=== PATIENT | male | born 1955 | race Caucasian/White ===

== ENCOUNTER 2020-08-01 08:15 | Emergency (ER) | payer BC, MEDICARE, SELFPAY ==
[2020-08-01 08:28] VITALS: BP 142/66; PULSE 70; RESP 20; TEMP 36.9; O2SAT 98
--- NOTE | 2020-08-01 08:43 | ED.URI ---
HPI - URI/Sore Throat General Chief Complaint: Upper Respiratory Infection Stated Complaint: Throat complaint Time Seen by Provider: 08/01/20 08:17 Source: patient Mode of arrival: ambulatory Limitations: no limitations History of Present Illness HPI Narrative: 65-year-old male presents to [facility] with complaints of sore throat and fatigue for the past 3 days. Patient reports has been taking [id number] Tylenol with minimal relief. Patient did have a tonsillectomy as a child. Patient reports that he had his Covid vaccine in May. Patient denies fever, bodies, chills, nausea, vomiting, diarrhea, cough, shortness of breath or wheezing. Patient denies sick contacts. Patient denies recent travel. MD elicited complaint: sore throat Onset (ago): day(s) (3) Consistency: constant Able to tolerate fluids by mouth: Yes Treatments prior to arrival: acetaminophen Related Data Home Medications Medication Instructions Recorded Confirmed albuterol sulfate INHALATION 08/01/20 fluticasone propionate [Flovent INHALATION 08/01/20 HFA] levothyroxine 08/01/20 pregabalin 08/01/20 rabeprazole mg PO 08/01/20 terbinafine HCl mg 08/01/20 Allergies Allergy/AdvReac Type Severity Reaction Status Date / Time Penicillins AdvReac Unknown Diarrhea Verified 08/01/20 08:41 Review of Systems Constitutional: Constitutional: Denies chills, Reports fatigue, Denies fever(s) and Denies weakness ENT: Denies dysphagia, Denies vertigo, Denies dizziness, Denies epistaxis, Denies nasal congestion and Reports sore throat Cardiovascular: Cardiovascular: Denies chest pain, Denies rapid heart rate, Denies radiating jaw, neck or arm pain and Denies slow heart rate Respiratory: Respiratory: Denies cough and Denies dyspnea Gastrointestinal: Gastrointestinal: Denies abdominal pain, Denies constipation, Denies diarrhea, Denies nausea and Denies vomiting PMF Past Medical History Medical History (Updated 08/01/20 @ 08:51 by Cindy Gibbons APRN) Appendicitis Hernia Tonsillectomy planned Surgical History Surgical History (Updated 08/01/20 @ 08:45 by Cindy Gibbons APRN) Knee joint replacement status Family History Family History Father Family history of malignant neoplasm Sibling Family history of diabetes mellitus in first degree relative Family history of heart disease in male family member before age 55 Mother Family history of heart disease in male family member before age 55 Social History Social History (Updated 08/01/20 @ 08:45 by Cindy Gibbons APRN) Smoking status: Never smoker Comments At time of signature, I agree with nursing past medical, surgical, social and family history. There is no relevant family history pertinent to the presenting complaint. Exam Const: General: healthy appearing, no acute distress and alert Orientation/consciousness: patient oriented x3 HENMT: Ears: external ears normal General nose exam: Normal external nose present Face and sinus: normal facial exam and sinuses nontender Mouth: Yes lip normal and Yes moist mucous membranes Teeth and gingiva: dentition normal Throat: uvula midline Other: Tonsils absent, moderate erythema noted to posterior pharynx and uvula. There is no swelling noted to uvula. Airway is patent. Neck: Neck: normal visual inspection Resp: Effort & Inspection: normal respiratory effort, not labored and not tachypneic Auscultation: clear to auscultation bilaterally Cardio: Rate: regular rate, not bradycardic and not tachycardic Rhythm: regular rhythm Skin: General skin exam: normal color Rashes: no rashes Neuro: General: patient oriented x3, moves all extremities and no meningeal signs Psych: Appearance: grossly normal Mental Status: mental status grossly normal Affect: normal affect Attitude: cooperative Thought content: Yes Normal thought content present Course Vital Signs Vital signs
== END 2020-08-01 09:20 | disposition home or self-care (01) ==
PROVIDERS: Emergency Provider Nurse Practitioner Family; PCP Family Medicine
DX: J02.9 Acute pharyngitis, unspecified (principal); M19.90 Unspecified osteoarthritis, unspecified site; M79.7 Fibromyalgia
CPT/HCPCS: 87081; 87880; 99213; G0463